=== PATIENT | female | born 1995 | race Caucasian/White ===

== ENCOUNTER 2019-09-06 07:38 | Outpatient (CLI) | payer OTHER, SELFPAY ==
[2019-09-11 06:51] LABS: SARS-CoV-2 RNA Undetected (Undetected); SARS-CoV-2 Specimen Source Nasopharynx
== END 2019-09-06 07:58 ==
PROVIDERS: PCP Family Medicine; Visit Provider Family Medicine
DX: Z11.59 Encounter for screening for other viral diseases (principal)
CPT/HCPCS: U0003

== ENCOUNTER 2020-03-13 11:18 | Outpatient (REF) | payer OTHER, SELFPAY ==
--- NOTE | 2020-03-13 09:00 | PAPFT_PTH ---
PATIENT: Edith Cleveland LOC: [facility] U#:[id number] AGE/SX: 25/F ROOM: RE03/13/[address]: Lucinda Centeno APRN : 1995 BED: DIS: 03/13/2020 SPEC #: [id number] RECD: 03/13/20 12:56 STATUS: OBI REMarcell #: [id number] ALEKSANDRA: 03/13/20 09:[address]: Lucinda Centeno DEPT: [facility] Cytology RECD BY: Nina Rojas ENTERED: 03/13/20 12:57 SP TYPE: PAPFT DEVANG DR: Amanda Sánchez MD Tissues: 1 - CX/ENDOCX FOR PAP SMEARS Procedures: PAP THIN PREP/[facility] Screening Comments: [id number]
== END 2020-03-13 11:38 ==
LOC: LBN 11:18
PROVIDERS: PCP Family Medicine
DX: Z12.4 Encounter for screening for malignant neoplasm of cervix (principal)
CPT/HCPCS: 88142

== ENCOUNTER 2020-03-17 02:25 | Outpatient (CLI) | payer OTHER, SELFPAY ==
[2020-03-17 08:54] LABS: Anion Gap 12.3 mmol/L (3-11); BUN 22 mg/dL (7-18); CO2 23.7 mmol/L (21.0-32.0); Chloride 103 mmol/L (98-107); Glucose 80 mg/dL (74-106); Potassium 4.2 mmol/L (3.5-5.1); Sodium 139 mmol/L (136-145)
== END 2020-03-17 02:45 ==
PROVIDERS: PCP Family Medicine
DX: Z00.00 Encounter for general adult medical examination without abnormal findings (principal)
CPT/HCPCS: 36415; 80048

== ENCOUNTER 2020-05-24 08:50 | Outpatient (CLI) | payer OTHER, SELFPAY ==
[2020-05-25 14:28] LABS: COVID-19 RT-PCR UVMMC Result Negative (Negative)
== END 2020-05-24 08:51 | disposition home or self-care (01) ==
PROVIDERS: PCP Family Medicine; Visit Provider Family Medicine
DX: Z20.822 Contact with and (suspected) exposure to COVID-19 (principal)
CPT/HCPCS: U0003

== ENCOUNTER 2023-05-23 19:59 | Emergency (ER) | payer OTHER, SELFPAY ==
[2023-05-23 20:02] VITALS: BP 124/91; PULSE 82; RESP 18; TEMP 37.1; O2SAT 100
[2023-05-23 20:15] VITALS: BP 124/91; PULSE 82; RESP 18; TEMP 37.1; O2SAT 100
[2023-05-23] MEDS: Tetracaine 0.5% 4 ML BTL (20:25)
[2023-05-23] MEDS: Fluorescein STRIPS 100/BOX 1 MG (20:26)
--- NOTE | 2023-05-23 20:42 | W.ED.GENAD ---
Discharge Plan Disposition Patient Disposition: Home Condition: Stable Discharge Details Clinical Impression: Swelling of left eye Primary Care Provider: Unknown,Unknown ED Provider: Calvin Galarza Home Meds and New Rx's Prescriptions: Continued luke wart 300 mg PO PRN oxybutynin chloride 5 mg tablet extended release 24hr 5 mg PO DAILY Qty: 90 2RF Discharge Instructions Additional Instructions: Please use antibiotic eye ointment as follows: Apply 0.5 inch, 4 times a day for the next 1 week. Apply a cool compress. Wet a washcloth with cold water and place it on your closed eye. This will help decrease irritation. Do not wear contact lenses. They can irritate your eye. Do not start using contact lenses until your eye career development coordinator/teacher says it is okay. Follow-up with your eye career development coordinator/teacher. Call tomorrow to arrange timely follow-up. Return to the ER immediately for any worsening or new concerning symptoms. HPI General Mode of arrival: ambulatory. Date/Time Provider Initiated Documentation: 05/23/23 20:07. Limitations to Documentation: no limitations. Information obtained by: patient. HPI Narrative: 28-year-old female presents with chief complaint of left eye swelling. Patient notes earlier today her contact seemed irritated and she attempted to remove it. She notes the contact tore in half. She thinks she only removed half of the contact this morning. She continued to have a sensation of eye discomfort through the day. She notes this evening her eye became swollen and a relative was able to remove the other half of the contact which had been retained all day. She notes significant swelling has developed. She does not have significant pain at this time but does note some irritation. Related Data Home Medications Medication Instructions Recorded Confirmed luke wart 300 mg PO PRN 03/14/21 03/22/22 oxybutynin chloride 5 mg 5 mg PO DAILY #90 tab-caps 10/29/22 05/23/23 tablet,extended release 24 hr Previous Rx's Medication Instructions Recorded oxybutynin chloride 5 mg 5 mg PO DAILY #90 tab-caps 10/29/22 tablet,extended release 24 hr Allergies Allergy/AdvReac Type Severity Reaction Status Date / Time amoxicillin Allergy Intermediate Skin Rash Verified 05/23/23 20:06 General Stated Complaint: EyeProblem VERN: 3 Review of Systems Eyes Eyes: Reports as per HPI Exam Eyes Alignment and Position: alignment normal Eyelids: eyelid abnormality left upper eyelid swelling and left lower eyelid swelling Conjunctivae: conjunctival abnormality left conjunctival chemosis Pupils: PERRL EOM: EOM intact bilaterally Course Vital Signs Vital signs: Vital Signs Temperature 37.1 C 05/23/23 20:02 Pulse 82 05/23/23 20:02 Respiratory Rate 18 05/23/23 20:02 Blood Pressure 124/91 H 05/23/23 20:02 Pulse Oximetry 100 05/23/23 20:02 Temperature 37.1 C 05/23/23 20:15 Temperature Source Skin 05/23/23 20:15 Pulse 82 05/23/23 20:15 Respiratory Rate 18 05/23/23 20:15 Respiratory Effort Normal 05/23/23 20:05 Blood Pressure 124/91 H 05/23/23 20:15 Blood Pressure Position Sitting 05/23/23 20:15 Pulse Oximetry 100 05/23/23 20:15 Oxygen Delivery Method Room Air 05/23/23 20:15 Oxygen Flow Rate 0 05/23/23 20:02 Medical Decision Making 28-year-old female here with left eye swelling after retained torn contact was removed. Suspect digital trauma is resulted in significant chemosis of the left conjunctiva. Tetracaine was applied to her eye and discomfort resolved. Lids were everted and no foreign body present. Fluorescein stain was applied and eye was examined under Hancock lamp: Negative Shaquille sign. No corneal abrasion/laceration. Plan to initiate treatment with ophthalmologic erythromycin. Usual customary discharge instructions were reviewed with the patient. She was encouraged to follow-up with her eye career development coordinator/teacher as soon as possible. She was encouraged to return immediately for any worsening or new concerning symptoms and she was made aware of expected course of healing and concerning signs. Quality:SDOH Health Related Social Needs: No Data to Display PFSH All Active Problems (Updated 05/23/23 @ 20:49 by Calvin Galarza MD) Swelling of left eye (Acute) OAB (overactive bladder) (Acute 05/15/17) rx started by Urology Anxiety (Chronic) Insomnia (Acute) Lipoma (Acute) 02/2021-right posterior shoulder about 2.5 cm in size Decreased hearing (Acute) Medical History Acne : Isotretinoin started. Rash of foot dry fissured feet Surgical History Myringotomy w/ PE (pressure equalizing) tubes b/l Family History Mother Macular degeneration Father Hyperlipidemia Glaucoma Sister No problems noted. Brother No problems noted. Maternal Grandfather No problems noted. Paternal Grandfather , age 75 Parkinson disease Maternal Grandmother Essential hypertension Hyperlipidemia Paternal Grandmother Essential hypertension Social History (Updated 03/25/22 @ 11:38 by Michelle Romero) Smoking/Tobacco Use Status: Never Second Hand Exposure: No Smoking risk assessment performed?: Yes Alcohol Intake: current Alcohol Intake frequency: a few times a month Alcohol type: hard liquor Drug use: Never Substance use type: does not use Counseling given: No Counseling provided: none Caregiver/Support person: No Household members: family Housing: house Communication Needs: Corrective Lenses Do you need help understanding health information?: Never Pets and animals: Yes Pets and animals: cat(s) and dog(s) Sexually active: No Do you think of yourself as: straight/heterosexual Current gender identity: female What is your relationship status?: never How often do you talk on the phone with friends or family?: once per week How often do you get together with friends or relatives?: once per week How often do you attend episcopalian or anabaptism services?: 4 or more times per year Do you belong to any clubs or organized social groups?: no Panel score (0-1 are the most socially isolated patients): 1 What type of physical activity do you participate in: walking, aerobic and running Duration: < 15 minutes/day Frequency: 5-6 times per week Paula/Muslim: Jew Special paula needs: No Seatbelt use: always Helmet use: Yes Helmet use: always Drive intox or ride w/intox tank wagon driver: No
[2023-05-23] MEDS: Erythromycin Ophth Oint 3.5 GM TUBE OS (21:06)
== END 2023-05-23 21:41 | disposition home or self-care (01) ==
LOC: ER 21:14
PROVIDERS: Emergency Provider Student in an Organized Health Care Education/Training Program
DX: H11.422 Conjunctival edema, left eye (principal)
CPT/HCPCS: 99283